=== PATIENT | female | born 1950 | race Caucasian/White ===

== ENCOUNTER → 2017-08-04 | Outpatient (CLI) | payer MEDICARE | END | disposition home or self-care (01) | LOC: PCVCCLINIC 16:31 | DX: I71.4 Abdominal aortic aneurysm, without rupture (principal); I25.10 Atherosclerotic heart disease of native coronary artery without angina pectoris; I70.1 Atherosclerosis of renal artery; K55.1 Chronic vascular disorders of intestine; I10 Essential (primary) hypertension; K50.919 Crohn's disease, unspecified, with unspecified complications; E78.00 Pure hypercholesterolemia, unspecified; J44.9 Chronic obstructive pulmonary disease, unspecified; Z79.01 Long term (current) use of anticoagulants; Z79.899 Other long term (current) drug therapy | CPT/HCPCS: G0463 ==

== ENCOUNTER → 2017-09-08 | Outpatient (CLI) | payer MEDICARE | END | disposition home or self-care (01) | LOC: PCVCIMAG 10:03 | DX: Z01.818 Encounter for other preprocedural examination (principal); I25.10 Atherosclerotic heart disease of native coronary artery without angina pectoris; I70.1 Atherosclerosis of renal artery; K55.1 Chronic vascular disorders of intestine; E78.00 Pure hypercholesterolemia, unspecified; K50.919 Crohn's disease, unspecified, with unspecified complications; I71.4 Abdominal aortic aneurysm, without rupture; I10 Essential (primary) hypertension; I48.0 Paroxysmal atrial fibrillation; R10.9 Unspecified abdominal pain; R06.02 Shortness of breath; I73.9 Peripheral vascular disease, unspecified; J44.9 Chronic obstructive pulmonary disease, unspecified; Z79.899 Other long term (current) drug therapy; Z79.01 Long term (current) use of anticoagulants | CPT/HCPCS: 76770; 80061; 93005; 93306; 93975; 93978; G0463 ==

== ENCOUNTER → 2017-09-14 | Outpatient (CLI) | payer MEDICARE ==
[~2017-09-14] MED LIST: CLOPIDOGREL BISULFATE 75 MG TABLET; DIAZEPAM 10 MG TABLET.; EPINEPHrine 1 MG/ML VIAL; HEPARIN SODIUM 5,000 UNIT/ML VIAL for PCVC.; HEPARIN for ARTERIAL LINE 1,500 ML; IOHEXOL 300 MG/ML 100ML VIAL.; IOHEXOL 350 MG/ML 100 ML VIAL.; IOHEXOL 350 MG/ML 50 ML VIAL.; IV NORMAL SALINE 500ML BAG 500 ML; LIDOCAINE 1% Multi-Dose 50 ML VIAL.; MIDAZOLAM HCL/PF 2 MG/2 ML VIAL.; PROTAMINE 50 MG/5 ML VIAL. IV; THROMBIN TOPICAL 5,000 UNIT VIAL.; WATER FOR INJECTION,STERILE 20 ML VIAL. IJ; ceFAZolin SODIUM 1 GM VIAL; hydrALAZINE 20 MG/ML VIAL.
== END | disposition home or self-care (01) ==
LOC: PCVCINTER 07:13
DX: I70.1 Atherosclerosis of renal artery (principal); I71.4 Abdominal aortic aneurysm, without rupture; K55.1 Chronic vascular disorders of intestine; I10 Essential (primary) hypertension; I70.203 Unspecified atherosclerosis of native arteries of extremities, bilateral legs; Z87.891 Personal history of nicotine dependence
CPT/HCPCS: 36245; 36252; 37246; 75630; 75726; 76937; 93458; 93926; 99152; 99153; J0171; J0360; J0690; J1644; J2250; J7040; Q9967

== ENCOUNTER → 2017-09-15 | Outpatient (CLI) | payer MEDICARE | END | disposition home or self-care (01) | LOC: PCVCIMAG 14:28 | DX: M79.604 Pain in right leg (principal); R19.09 Other intra-abdominal and pelvic swelling, mass and lump; R10.30 Lower abdominal pain, unspecified | CPT/HCPCS: 93926 ==

== ENCOUNTER → 2018-03-16 | Outpatient (CLI) | payer MEDICARE ==
--- NOTE | 2018-03-16 12:00 | PCVCIMAG ---
EXAM: RIGHT RENAL ULTRASOUND AND BILATERAL RENAL DUPLEX INDICATION: Hypertension. 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 FINDINGS: Right kidney: Length measures 10.7 cm. No hydronephrosis or extensive renal scarring. Right renal duplex: Adequate technical quality. Mild restenosis proximal renal artery stent. This is decreased in severity compared to August 2017 study. The aortic to renal artery ratio is 7.0. The renal vein is patent. Bladder: No obvious abnormalities. IMPRESSION: : Mild restenosis in the proximal right renal artery is present today. This is decreased in severity since prior study. EXAM: MESENTERIC ARTERIAL DUPLEX INDICATION: Mesenteric Atherosclerosis. FINDINGS: Celiac [place]: Moderate velocity elevations are again seen less prominent than prior study. Previous angiogram showed no significant stenosis however. Superior Mesenteric Artery: Moderate velocity elevations are again seen less prominent than prior study. Previous angiogram showed no significant stenosis however with prior stent maintaining adequate patency. Inferior Mesenteric Artery: Unchanged chronic occlusion. Mesenteric veins are patent where seen. IMPRESSION: No flow-limiting stenosis in the celiac axis or superior mesenteric artery. 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 Incidental note is made of a 4.4 cm infrarenal abdominal aortic aneurysm. Please see prior CT from August 2017. LOC:[id number]
--- NOTE | 2018-03-16 14:05 | PCVCIMAG ---
EXAM: BILATERAL CAROTID DUPLEX INDICATION: Carotid Occlusive Disease. FINDINGS: Doppler Measurements (centimeters per second): RIGHT: Peak CCA-57, Peak ECA-154, Diastolic ICA-61, Peak ICA-179, ICA/CCA Ratio-3.1. LEFT: Peak CCA-59, Peak ECA-93, Diastolic ICA-32, Peak ICA-85, ICA/CCA Ratio-1.4. RIGHT CAROTID: The carotid bulb has moderately severe plaque. The proximal internal carotid artery shows 60-70% stenosis. The common carotid artery shows no significant stenosis. The external carotid artery shows 50% stenosis. LEFT CAROTID: The carotid bulb has moderate plaque. The proximal internal carotid artery shows <40% stenosis. The common carotid artery shows no significant stenosis. The external carotid artery shows no significant stenosis. Antegrade flow in both vertebral arteries. IMPRESSION: 60-70% stenosis of the right internal carotid artery with moderately severe plaque. <40% stenosis of the left internal carotid artery with moderate plaque. LOC:[place] [id number]
== END | disposition home or self-care (01) ==
LOC: PCVCIMAG 11:18
PROVIDERS: ATTEND Internal Medicine Cardiovascular Disease
DX: I65.23 Occlusion and stenosis of bilateral carotid arteries (principal); R09.89 Other specified symptoms and signs involving the circulatory and respiratory systems; I25.10 Atherosclerotic heart disease of native coronary artery without angina pectoris; R42 Dizziness and giddiness; R55 Syncope and collapse; K55.1 Chronic vascular disorders of intestine; I70.1 Atherosclerosis of renal artery; E78.00 Pure hypercholesterolemia, unspecified; I10 Essential (primary) hypertension; K50.919 Crohn's disease, unspecified, with unspecified complications; J44.9 Chronic obstructive pulmonary disease, unspecified; I71.4 Abdominal aortic aneurysm, without rupture; F17.210 Nicotine dependence, cigarettes, uncomplicated; I77.9 Disorder of arteries and arterioles, unspecified; Z79.01 Long term (current) use of anticoagulants
CPT/HCPCS: 76770; 93005; 93880; 93975; G0463

== ENCOUNTER → 2018-08-09 | Outpatient (CLI) | payer MEDICARE ==
--- NOTE | 2018-08-09 20:27 | PCVCIMAG ---
EXAM: AORTOILIAC DUPLEX INDICATION: Abdominal aortic aneurysm. FINDINGS: AORTA: Suprarenal aorta measures maximum diameter of 3.2 cm. There is a fusiform infrarenal aortic aneurysm. The infrarenal aorta measures maximum diameter of 3.6 x 4.5 cm. No aortic stenosis. RIGHT COMMON ILIAC ARTERY: Maximum diameter is 1.9 x 2.4 cm. No significant stenosis. RIGHT EXTERNAL ILIAC ARTERY: No significant stenosis. LEFT COMMON ILIAC ARTERY: Maximum diameter is 0.9 x 1.3 cm. No significant stenosis. LEFT EXTERNAL ILIAC ARTERY: No significant stenosis. IMPRESSION: 4.5 cm infrarenal abdominal aortic aneurysm is unchanged since August 2017 study. 2.4 cm right common iliac artery aneurysm has shown interval increase in size. Interval follow-up in 1 year is suggested. LOC:[id number]
== END | disposition home or self-care (01) ==
LOC: PCVCIMAG 13:23
PROVIDERS: ATTEND Nuclear Medicine Nuclear Cardiology
DX: I71.4 Abdominal aortic aneurysm, without rupture (principal); I72.3 Aneurysm of iliac artery
CPT/HCPCS: 93978

== ENCOUNTER → 2019-03-22 | Outpatient (CLI) | payer MEDICARE ==
--- NOTE | 2019-03-22 10:44 | PCVCIMAG ---
EXAM: BILATERAL CAROTID DUPLEX INDICATION: Carotid Occlusive Disease. FINDINGS: Doppler Measurements (centimeters per second): RIGHT: Peak CCA-71, Peak ECA-325, Diastolic ICA-81, Peak ICA-305, ICA/CCA Ratio-4.3. LEFT: Peak CCA-86, Peak ECA-417, Diastolic ICA-36, Peak ICA-95, ICA/CCA Ratio-1.1. RIGHT CAROTID: The carotid bulb has moderately severe plaque. The proximal internal carotid artery shows 80% stenosis. The common carotid artery shows no significant stenosis. The external carotid artery shows 80% stenosis. LEFT CAROTID: The carotid bulb has moderate plaque. The proximal internal carotid artery shows <40% stenosis. The common carotid artery shows no significant stenosis. The external carotid artery shows 90% stenosis. Antegrade flow in both vertebral arteries. IMPRESSION: 80% stenosis of the right internal carotid artery with moderately severe plaque. <40% stenosis of the left internal carotid artery with moderate plaque. Moderate increase in right carotid stenosis since February 2018 study. LOC:[id number]
--- NOTE | 2019-03-22 11:09 | PCVCIMAG ---
EXAM: AORTOILIAC DUPLEX INDICATION: Abdominal aortic aneurysm. FINDINGS: AORTA: Suprarenal aorta measures maximum diameter of 3.1 cm. There is a fusiform infrarenal aortic aneurysm. The infrarenal aorta measures maximum diameter of 3.6 x 4.5 cm. No aortic stenosis. RIGHT COMMON ILIAC ARTERY: Maximum diameter is 2.5 cm. No significant stenosis. RIGHT EXTERNAL ILIAC ARTERY: No significant stenosis. LEFT COMMON ILIAC ARTERY: Maximum diameter is 1.6 cm. No significant stenosis. LEFT EXTERNAL ILIAC ARTERY: No significant stenosis. IMPRESSION: 4.5 cm infrarenal abdominal aortic aneurysm is unchanged compared to July 2018. 2.5 cm right common iliac artery aneurysm similar to prior study. LOC:[id number]
--- NOTE | 2019-03-22 11:15 | PCVCIMAG ---
EXAM: RIGHT RENAL ULTRASOUND AND RIGHT RENAL DUPLEX INDICATION: Hypertension FINDINGS: Right kidney: Length measures 11.5 cm. No hydronephrosis or extensive renal scarring. 1.5 x 1.7 cm benign cyst lower pole right kidney. Right renal duplex: Adequate technical quality. Mild restenosis proximal renal artery. The aortic to renal artery ratio is 4.4. The renal vein is patent. Left kidney: Left kidney is absent. IMPRESSION: Mild restenosis proximal right renal artery within prior stent not felt be flow-limiting. EXAM: MESENTERIC ARTERIAL DUPLEX INDICATION: Mesenteric Atherosclerosis. FINDINGS: Celiac [place]: Mild stenosis. No branch vessel stenosis. Superior Mesenteric Artery: Previous stent proximally showing only mild restenosis not felt be flow-limiting. 50% stenosis mid vessel.. Inferior Mesenteric Artery: Difficult to see consistent with known prior occlusion. Mesenteric veins are patent where seen. 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 Mild restenosis previous proximal superior mesenteric artery stent with 50% stenosis mid vessel. LOC:[id number]
--- NOTE | 2019-03-22 17:09 | PCVCIMAG ---
APPROVED REPORT Study performed: 03/22/2019 12:15:25 EXAM: Comprehensive 2D, Doppler, and color-flow Echocardiogram Patient Location: Echo lab Status: routine BSA: 1.72 HR: 77 bpmBP: 128/78 mmHg Rhythm: NSR Other Information Study Quality: Adequate Indications Pre-Op Atrial Fibrillation Carotid stenosis 2D Dimensions IVSd: 12.29 (7-11mm) LVDd: 38.84 mm PWd: 12.07 (7-11mm)Ascending Ao: 34.01 (22-36mm) LVDs: 27.01 (25-40mm) Left Atrium: 33.77 (27-40mm) Aortic Root: 30.52 mm LV Single Plane 4CH: 37.70 % LV Single Plane 2CH: 55.25 % Biplane EF: 47.8 % Volumes Left Atrial Volume (Systole) Single Plane 4CH: 42.37 mLSingle Plane 2CH: 70.82 mL LA ESV Index: 32.00 mL/m2 Aortic Valve AoV Peak Caden.: 1.21 m/s AO Peak Gr.: 5.84 mmHgLVOT Max P.30 mmHg LVOT Max V: 0.91 m/s Mitral Valve E/A Ratio: 0.5 MV Decel. Time: 279.58 ms MV E Max Caden.: 0.36 m/s MV A Caden.: 0.73 m/s IVRT: 159.17 ms Pulmonary Valve PV Peak Caden.: 0.78 m/sPV Peak Gr.: 2.43 mmHg Pulmonary Vein P Vein S: 0.31 m/sP Vein A: 0.99 m/s P Vein D: 0.56 m/sP Vein A Dur.: 155.7 msec P Vein S/D Ratio: 0.55 Tricuspid Valve TR Peak Caden.: 2.62 m/s TR Peak Gr.: 27.51 mmHg Left Ventricle The left ventricle is normal size. There is normal LV segmental wall motion. Mild concentric left ventricular hypertrophy. Left ventricular systolic function is within the lower limits of normal. LVEF is 50%. Grade I - abnormal relaxation pattern. Right Ventricle The right ventricle is normal size. The right ventricular systolic function is normal. Atria The left atrium size is normal. The right atrium size is normal. Aortic Valve The aortic valve is normal in structure. No aortic regurgitation is present. There is no aortic valvular stenosis. Mitral Valve The mitral valve is normal in structure. Mild mitral regurgitation. No evidence of mitral valve stenosis. Tricuspid Valve The tricuspid valve is normal in structure. Mild tricuspid regurgitation with PAP of 34 mmHg. Pulmonic Valve The pulmonary valve is normal in structure. There is trace pulmonic valvular regurgitation. Great Vessels The aortic root is normal in size. IVC is normal in size and collapses >50% with inspiration. Pericardium There is no pericardial effusion. There is no pleural effusion. <Conclusion> The left ventricle is normal size. Mild concentric left ventricular hypertrophy. LVEF is 50%. Grade I - abnormal relaxation pattern. The right ventricular systolic function is normal. The left atrium size is normal. No aortic regurgitation is present. Mild mitral regurgitation. Mild tricuspid regurgitation with PAP of 34 mmHg. The aortic root is normal in size. There is no pericardial effusion.
== END | disposition home or self-care (01) ==
LOC: PCVCIMAG 08:40
PROVIDERS: ATTEND Internal Medicine Cardiovascular Disease
DX: Z01.818 Encounter for other preprocedural examination (principal); I65.23 Occlusion and stenosis of bilateral carotid arteries; I08.1 Rheumatic disorders of both mitral and tricuspid valves; I71.4 Abdominal aortic aneurysm, without rupture; I73.9 Peripheral vascular disease, unspecified; I70.1 Atherosclerosis of renal artery; K55.1 Chronic vascular disorders of intestine; I25.10 Atherosclerotic heart disease of native coronary artery without angina pectoris; I10 Essential (primary) hypertension; I48.91 Unspecified atrial fibrillation; E78.00 Pure hypercholesterolemia, unspecified; J44.9 Chronic obstructive pulmonary disease, unspecified; K50.919 Crohn's disease, unspecified, with unspecified complications; I72.3 Aneurysm of iliac artery; F17.210 Nicotine dependence, cigarettes, uncomplicated
CPT/HCPCS: 36415; 76770; 80061; 93005; 93306; 93880; 93975; 93978; G0463